=== PATIENT | female | born 1990 | race Caucasian/White ===

== ENCOUNTER 2018-01-06 10:15 | Inpatient (IN) | payer OTHER ==
[2018-01-06] MEDS ORDERED: FIORICET PO (13:50)
[2018-01-06] MEDS ORDERED: TRAMADOL HCL50 MG PO (13:53)
[2018-01-06] MEDS ORDERED: FLEXERIL PO (13:54)
[2018-01-12] MEDS ORDERED: CYCLOBENZAPRINE5 MG PO (09:18)
[2018-01-12] MEDS ORDERED: BUTALBITAL-ACE1 EAC1 PO (09:19)
== END 2018-01-28 20:24 | DRG 742 ==
LOC: SURH 01-12 08:15 → OB/GYN 01-12 09:07 → O/R 01-12 09:07 → SURH 01-12 10:15 → OB/GYN 01-12 17:43
PROVIDERS: Obstetrics & Gynecology
PROC: 0UB70ZZ Excision of Bilateral Fallopian Tubes, Open Approach (ICD-10-PCS; 2018-01-12)
PROC: BW4GZZZ Ultrasonography of Pelvic Region (ICD-10-PCS; 2018-01-12)
PROC: 0UT90ZZ Resection of Uterus, Open Approach (ICD-10-PCS; principal; 2018-01-12 08:15)
DX: N93.8 Other specified abnormal uterine and vaginal bleeding (principal); K68.11 Postprocedural retroperitoneal abscess; N70.11 Chronic salpingitis; B95.3 Streptococcus pneumoniae as the cause of diseases classified elsewhere

== ENCOUNTER 2021-05-09 10:30 | Inpatient (IN) | payer OTHER ==
[~2021-05-09] VITALS: Ht 149.9 cm; Wt 76.2 kg
[~2021-05-09 10:30] MED LIST: BUTALBITAL-ACE1 EAC1 PO; CYCLOBENZAPRINE5 MG PO; FIORICET PO; FLEXERIL PO; TRAMADOL HCL50 MG PO
== END 2021-05-18 10:53 | disposition home or self-care (01) | DRG 750 ==
LOC: O/R 05-14 07:02 → OB/GYN 05-14 07:02 → SURH 05-14 10:30 → OB/GYN 05-14 23:39
PROVIDERS: ADMIT Obstetrics & Gynecology; ATTEND Obstetrics & Gynecology
PROC: 0TCB0ZZ Extirpation of Matter from Bladder, Open Approach (ICD-10-PCS; 2021-05-14)
PROC: 0DNW0ZZ Release Peritoneum, Open Approach (ICD-10-PCS; principal; 2021-05-14 19:00)
DX: N83.292 Other ovarian cyst, left side (principal); N73.6 Female pelvic peritoneal adhesions (postinfective); Z20.822 Contact with and (suspected) exposure to COVID-19